=== PATIENT | male | born 1980 | race Two or more races ===

== ENCOUNTER 2018-08-22 16:26 | Emergency (ER) | payer OTHER ==
[2018-08-22 16:36] VITALS: BP 159/88; PULSE 68; RESP 16; TEMP 98.8; O2SAT 98
--- NOTE | 2018-08-22 17:14 | ED PDOC ---
HPI: Back Time Seen by Provider: 08/22/18 16:42 Chief Complaint (Nursing): Back Pain Chief Complaint (Provider): Back Pain History Per: Patient History/Exam Limitations: no limitations Onset/Duration Of Symptoms: Days (x2) Current Symptoms Are (Timing): Still Present Additional Complaint(s): 38 year old male with no PMHx presents to the ED with left sided low back pain onset x2 days. Patient states he was at work x2 day ago, pushing heavy floor tiles when he developed sudden onset left sided back pain, radiating to tailbone. He has been taking Advil regularly and using a heating pad with improvement of pain. Patient denies any numbness, tingling, fever or chills. He was told by his job that he needs to be evaluated in the ED. Patient states pain is tolerable and his last dose of Advil was 2 pm today. PMD: Jurgen French Past Medical History Reviewed: Historical Data, Nursing Documentation, Vital Signs Vital Signs: Last Vital Signs Temp 98.8 F 08/22/18 16:35 Pulse 68 08/22/18 16:35 Resp 16 08/22/18 16:35 BP 159/88 H 08/22/18 16:35 Pulse Ox 98 08/22/18 16:35 - Medical History Other PMH: childhood leukemia - Family History Family History: States: Unknown Family Hx - Home Medications Home Medications: Ambulatory Orders Medication Instructions Recorded Cyclobenzaprine [Cyclobenzaprine 10 mg PO Q8 PRN 7 Days tab 08/22/18 HCl] - Allergies Allergies/Adverse Reactions: Allergies Allergy/AdvReac Type Severity Reaction Status Date / Time No Known Allergies Allergy Verified 08/22/18 16:34 Review of Systems ROS Statement: Except As Marked, All Systems Reviewed And Found Negative Constitutional: Negative for: Fever, Chills Musculoskeletal: Positive for: Back Pain (left sided) Physical Exam - Reviewed Nursing Documentation Reviewed: Yes Vital Signs Reviewed: Yes - Physical Exam Appears: Positive for: Well, No Acute Distress Head Exam: Positive for: ATRAUMATIC, NORMOCEPHALIC Skin: Positive for: Normal Color, Warm, Dry Eye Exam: Positive for: Normal appearance, EOMI, PERRL Cardiovascular/Chest: Positive for: Regular Rate, Rhythm Respiratory: Positive for: Normal Breath Sounds. Negative for: Respiratory Distress Pulses-Dorsalis Pedis (L): 2+ Pulses-Dorsalis Pedis (R): 2+ Back: Positive for: Other (No erythema, edema or ecchymosis. Normal ROM with flexion of back, some decreased ROM with extension of back, tenderness to palpation of left lower back, no spinal tenderness.) Extremity: Positive for: Capillary Refill (less than two seconds), Other (normal ROM of flexion and extension at bilateral hips and knees). Negative for: Pedal Edema, Deformity Neurological/Psych: Positive for: Awake, Alert, Oriented (x3) - ECG O2 Sat by Pulse Oximetry: 98 (RA) Pulse Ox Interpretation: Normal Medical Decision Making Medical Decision Making: Time: 1706 --Patient advised that he likely has back strain vs radicular pain from possible lumbar disc herniation, studies not recommended at this time given that symptoms improving with anti-inflammatory medications. Patient is in agreement and will continue pain meds. Patient does not desire further treatment in ED. Pain is tolerable at this time. Patient to be discharge home with prescription for flexeril and advised of potential for drowsiness. ScribeAttestation: Documented bySamara Puentes, acting as a scribe for Aleja Adkins PA-C. Provider ScribeAttestation: All medical record entries made by the Scribe were at my direction and per sonally dictated by me. I have reviewed the chart and agree that the record accurately reflects my personal performance of the history, physical exam, medical decision making, and the department course for this patient. I have also personally directed, reviewed, and agree with the discharge instructions and disposition. Disposition - Clinical Impression Clinical Impression: Back strain - Patient ED Disposition Is Patient to be Admitted: No Counseled Patient/Family Regarding: Diagnosis, Rx Given - Disposition Referrals: Jurgen French MD [Medical Doctor] - Disposition: Routine/Home Disposition Time: 17:06 Condition: STABLE Additional Instructions: Follow up with your primary care doctor if your pain persists or progresses. Return to ER if you have numbness or leg weakness. Take Ibuprofen and Flexeril for pain. Avoid taking Flexeril (Cyclobenzaprine) if you will be driving or operating heavy machinery as it may make you drowsy. Prescriptions: Cyclobenzaprine [Cyclobenzaprine HCl] 10 mg PO Q8 PRN 7 Days tab PRN Reason: Pain, Moderate (4-7) Instructions: Low Back Pain (DC), Muscle Strain (DC), Back Exercises Forms: Gust (A[place]ijani), [facility] ED School/Work Excuse Print Language: NIGERIAN
== END 2018-08-22 17:22 | disposition home or self-care (01) ==
LOC: H.ER 16:26
DX: S39.012A Strain of muscle, fascia and tendon of lower back, initial encounter (principal); X50.9XXA Other and unspecified overexertion or strenuous movements or postures, initial encounter; Y99.0 Civilian activity done for income or pay